=== PATIENT | male | born 1980 | race Caucasian/White ===

== ENCOUNTER 2020-02-28 13:52 | Emergency (ER) | payer MEDICAID ==
[~2020-02-28] VITALS: Ht 167.6 cm; Wt 100.0 kg
[2020-02-28 14:22] VITALS: BP 139/81
== END 2020-02-28 16:59 | disposition home or self-care (01) ==
LOC: EMS 14:19
DX: U07.1 COVID-19 (principal); F17.210 Nicotine dependence, cigarettes, uncomplicated
CPT/HCPCS: Z7502